=== PATIENT | female | born 1995 | race Caucasian/White ===

== ENCOUNTER 2021-12-27 12:46 | Emergency (ER) | payer MEDICAID ==
[~2021-12-27] VITALS: Ht 160 cm; Wt 86.2 kg
[2021-12-27 12:59] VITALS: BP 131/81
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
[2021-12-27 13:35] VITALS: BP 131/81
--- NOTE | 2021-12-27 13:36 | NUR ---
Patient discharged with v/s stable. Written and verbal after care instructions given and explained. Patient verbalized understanding. Ambulatory with steady gait. All questions addressed prior to discharge. Advised to follow up with PMD.
== END 2021-12-27 13:36 | disposition home or self-care (01) ==
LOC: MED 12:46
DX: S64.91XA Injury of unspecified nerve at wrist and hand level of right arm, initial encounter (principal); V19.9XXA Pedal cyclist (driver) (passenger) injured in unspecified traffic accident, initial encounter; Y93.55 Activity, bike riding; Y92.410 Unspecified street and highway as the place of occurrence of the external cause; Y99.8 Other external cause status
CPT/HCPCS: 99281

== ENCOUNTER 2022-04-27 15:56 | Emergency (ER) | payer MEDICAID ==
[~2022-04-27] VITALS: Ht 160 cm; Wt 86.2 kg
[2022-04-27 16:21] VITALS: BP 138/82
--- NOTE | 2022-04-27 17:30 | NUR ---
FIRST ATTEMPTED TO CALL PT BACK WITH NO ANSWER
--- NOTE | 2022-04-27 17:30 | NUR ---
PATIENT LEFT WITHOUT BEING SEEN BY DR. SERRANO. NO FURTHER CARE PROVIDED FOR PATIENT.
--- NOTE | 2022-04-27 17:55 | NUR ---
SECOND ATTEMPTED TO CALL PT BACK WITH NO ANSWER
--- NOTE | 2022-04-27 18:32 | NUR ---
THIRD ATTEMPTED TO CALL PT BACK WITH NO ANSWER
== END 2022-04-27 17:30 | disposition left against medical advice (07) ==
LOC: MED 15:56
DX: M25.562 Pain in left knee (principal); Z53.21 Procedure and treatment not carried out due to patient leaving prior to being seen by health care provider

== ENCOUNTER 2022-08-24 13:22 | Emergency (ER) | payer MEDICAID ==
[~2022-08-24] VITALS: Ht 160 cm; Wt 89.0 kg
[2022-08-24 13:28] VITALS: BP 130/85
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
[2022-08-24] MEDS ORDERED: PHENAZOPYRIDINE 100 MG TAB PO ONE (13:55)
[2022-08-24] MEDS ORDERED: IBUPROFEN 800 MG TAB PO ONE (13:55)
[2022-08-24] MEDS ORDERED: CEPH-588 PO (14:56)
[2022-08-24] MEDS ORDERED: IBUP-2213 PO (14:58)
[2022-08-24 15:37] LABS: BILIRUBIN,URINE NEGATIVE (NEGATIVE); BLOOD, URINE 3+ (NEGATIVE); COLOR,URINE YELLOW (YELLOW); LEUKOCYTE ESTERASE ,URINE 1+ (NEGATIVE); NITRITE, URINE NEGATIVE (NEGATIVE); UGLUCOSE NEGATIVE (NEGATIVE)
[2022-08-24 15:48] LABS: APPEARANCE,URINE HAZY (CLEAR)
[2022-08-24 16:17] LABS: RBC,URINE 20-50 /HPF (0-5); WBC,URINE 80-100 /HPF (0-5)
--- NOTE | 2022-08-24 16:41 | NUR ---
Patient discharged with v/s stable. Written and verbal after care instructions given and explained. Patient alert, oriented and verbalized understanding of instructions. Ambulatory with steady gait. All questions addressed prior to discharge. ID band removed. Patient advised to follow up with PMD. Rx of KEFLEX, MOTRIN given. Patient educated on indication of medication including possible reaction and side effects. Opportunity to ask questions provided and answered.
== END 2022-08-24 16:41 | disposition home or self-care (01) ==
LOC: MED 13:22
DX: N39.0 Urinary tract infection, site not specified (principal); Z79.899 Other long term (current) drug therapy
CPT/HCPCS: 81001; 81025; 87086; 99283